=== PATIENT | female | born 1975 | race Caucasian/White ===

== ENCOUNTER 2017-07-28 02:34 | Emergency (ER) | payer OTHER ==
[~2017-07-28] VITALS: Ht 165.1 cm; Wt 68.0 kg
[~2017-07-28 02:34] MED LIST: ACETAMINOOPHEN-1 TAB PO; CATAFLAM50 MG PO; KETO10TA2 PO
== END 2017-07-28 12:57 | disposition home or self-care (01) ==
LOC: ER 02:34
DX: N83.291 Other ovarian cyst, right side (principal); R10.2 Pelvic and perineal pain

== ENCOUNTER 2018-05-23 12:17 | Emergency (ER) | payer OTHER ==
[~2018-05-23] VITALS: Ht 165.1 cm; Wt 70.3 kg
== END 2018-05-23 16:36 | disposition home or self-care (01) ==
LOC: ER 12:17
DX: S81.022A Laceration with foreign body, left knee, initial encounter (principal); W26.8XXA Contact with other sharp object(s), not elsewhere classified, initial encounter; Y93.55 Activity, bike riding; Y92.89 Other specified places as the place of occurrence of the external cause; Y99.8 Other external cause status

== ENCOUNTER 2024-01-03 10:49 | Emergency (ER) | payer OTHER ==
[~2024-01-03] VITALS: Ht 165.1 cm; Wt 68.0 kg
[2024-01-03] MEDS ORDERED: LEVOTHYROXINE25 MCG (10:58)
[2024-01-03 12:14] LABS: HEMATOCRIT 35.4 % (36.0-45.00); HEMOGLOBIN 12.1 g/dL (12.0-15.00); MEAN CELL VOLUME 84.1 fL (80.00-100.00); MEAN CORPUSCULAR HEMOGLOBIN 28.6 pg (27.00-32.0); PLATELET COUNT 341 K/uL (150-450); RED BLOOD COUNT 4.21 M/uL (4.00-6.00)
[2024-01-03] MEDS ORDERED: levoFLOXacin IN DEXTROSE 5 % 5 MG/ML PIGGYBAG IV STA (12:31)
[2024-01-03] MEDS ORDERED: METHYLPREDNISOLONE SOD SUCC 125 MG VIAL IV STA (12:32)
[2024-01-03] MEDS ORDERED: LEVALBUTEROL HCL 1.25 MG/3 ML SOLUTION IH SCH (12:45)
[2024-01-03] MEDS ORDERED: BUDESONIDE 0.5 MG/2 ML AMPUL.NEB IH SCH (12:45)
[2024-01-03 12:56] LABS: ABG PH 7.487 (7.35-7.45); ABG PO2 84.8 mmHg (80-100); ABG pCO2 29.8 mmHg (35-45); BASE EXCESS -0.2 mmol/l; SaO2 97.2 %
[2024-01-03 13:00] LABS: allen test SATISFACTORY; o2 21 %; puncture site RADIAL LEFT
[2024-01-03 13:22] LABS: CALCIUM 9.4 mg/dL (8.5-10.1); CREATININE SERUM 0.7 mg/dL (0.55-1.02); GFR 89.69; POTASSIUM 3.87 mEq/L (3.5-5.1)
== END 2024-01-03 17:38 | disposition home or self-care (01) ==
LOC: ER 10:51
PROVIDERS: General Practice
DX: R05.9 Cough, unspecified (principal)
CPT/HCPCS: 36415; 71045; 71250; 94640; 96365; 99284; J3490

== ENCOUNTER → 2024-04-13 | Emergency (ER) | payer OTHER ==
[~2024-04-13] VITALS: Ht 165.1 cm; Wt 68.0 kg
[~2024-04-13] MED LIST changes: +LEVOTHYROXINE25 MCG
[2024-04-13 04:47] VITALS: BP 120/76; O2SAT 95
== END | disposition left against medical advice (07) ==
LOC: ER 04:43
DX: Z53.21 Procedure and treatment not carried out due to patient leaving prior to being seen by health care provider (principal)

== ENCOUNTER 2024-10-04 11:03 | Emergency (ER) | payer OTHER ==
[~2024-10-04] VITALS: Ht 165.1 cm; Wt 68.0 kg
[2024-10-04] MEDS ORDERED: 0.9 % SODIUM CHLORIDE 1,000 ML IV STA (12:14)
[2024-10-04 13:03] LABS: BASO % 0.5 % (0.1-1.2); EOS # 0.09 (0.04-0.54); EOS % 0.8 % (0.7-7.0); HEMATOCRIT 37.7 % (34.1-44.9); HEMOGLOBIN 12.8 g/dL (11.2-15.7); LYMPH % 15.9 % (19.3-53.1); MEAN CORPUSCULAR HEMOGLOBIN 28.6 pg (25.6-32.2); MONO # 1.14 (0.24-0.82); MONO % 10.1 % (4.7-12.5); NEUT # 8.21 (1.56-6.13); NEUT % 72.5 % (34.0-71.1); PLATELET COUNT 314 K/uL (163-369); RED BLOOD COUNT 4.47 M/uL (3.93-5.22); RED CELL DISTRIBUTION WIDTH 13.2 % (11.6-14.4)
[2024-10-04 13:26] LABS: CALCIUM 9.5 mg/dL (8.5-10.1); CREATININE SERUM 0.65 mg/dL (0.55-1.02); GFR 97.28; POTASSIUM 3.51 mEq/L (3.5-5.1)
[2024-10-04 14:17] LABS: PH,URINE 5.5 (5.0-8.0); URINE APPEARANCE Clear; URINE BILIRRUBIN Negative (NEGATIVE); URINE BLOOD Large; URINE COLOR Yellow; URINE GLUCOSE Negative (NEGATIVE); URINE KETONE 15 (NEGATIVE); URINE LEUKOCYTE Negative; URINE NITRATE Negative; URINE PROTEIN 30 (NEGATIVE); URINE UROBILINOGEN 0.2 E.U./dl
[2024-10-04 14:22] LABS: URINE BACTERIA 44.3 uL (0.0-1933); URINE EPITHELIAL CELLS 17.3 uL (0.0-38.8); URINE RBC 252.7 uL (0.0-20.8); URINE WBC 5.9 uL (0.0-23.2)
[2024-10-04 14:37] LABS: URINE CAST 0.73 uL (0.0-1.40)
[2024-10-04] MEDS ORDERED: CIPROFLOXACIN IN 5 % DEXTROSE 400 MG/200 ML PIGGYBAG IV ONE (15:30)
[2024-10-04] MEDS ORDERED: METRONIDAZOLE/SODIUM CHLORIDE 500 MG/100 ML PIGGYBACK IV ONE (15:30)
== END 2024-10-04 18:09 | disposition home or self-care (01) ==
LOC: ER 17:11
PROVIDERS: Emergency Medicine
DX: K52.9 Noninfective gastroenteritis and colitis, unspecified (principal); E03.9 Hypothyroidism, unspecified
CPT/HCPCS: 36415; 96365; 96366; 99282; J0744; J3490